=== PATIENT | female | born 1990 | race Caucasian/White ===

== ENCOUNTER → 2019-02-12 | Outpatient (CLI) | payer OTHER ==
[2019-02-12 14:05] LABS: BASO % 0.4 % (0.0-1.0); EOS # 0.2 10^3/uL (0.0-0.5); EOS % 2.9 % (0.0-3.0); HEMATOCRIT 42.1 % (36.0-47.0); HEMOGLOBIN 13.2 g/dl (12.0-15.5); LYMPH % 37.9 % (24.0-44.0); MEAN CORPUSCULAR HEMOGLOBIN 29.9 pg (27.0-33.0); MEAN CORPUSCULAR HGB CONC 31.4 g/dl (32.0-36.5); MEAN CORPUSCULAR VOLUME 95.5 fl (80.0-96.0); MONO # 0.4 10^3/uL (0.0-0.8); MONO % 8.4 % (0.0-5.0); NEUTROPHILS # 2.6 10^3/uL (1.5-8.5); NEUTROPHILS % 50.2 % (36.0-66.0); PLATELET COUNT, AUTOMATED 306 10^3/uL (150-450); RED BLOOD COUNT 4.41 10^6/uL (4.00-5.40); WHITE BLOOD COUNT 5.3 10^3/uL (4.0-10.0)
[2019-02-12 14:20] LABS: FREE T4 0.8 NG/DL (0.76-1.46); THYROID STIMULATING HORMONE 3.07 uIU/ML (0.358-3.740)
[2019-02-12 14:22] LABS: TOTAL 25(OH) VITAMIN D 21.2 NG/ML (30.0-100.0)
== END ==
LOC: M PLALAB 10:35
PROVIDERS: ATTEND Family Medicine
DX: F32.1 Major depressive disorder, single episode, moderate (principal)

== ENCOUNTER 2019-04-03 09:53 | Emergency (ER) | payer OTHER ==
[~2019-04-03] VITALS: Ht 162.6 cm; Wt 72.1 kg
[2019-04-03] MEDS ORDERED: [UNRECOGNIZED DRUG - OTHER] (10:01)
[2019-04-03] MEDS ORDERED: SERT-138 (10:02)
[2019-04-03] MEDS ORDERED: BENZ200C70 PO (11:35)
--- NOTE | 2019-04-03 12:15 | REP ---
Chest x-ray: Two views. History: cough and fever . Comparison study: No comparison . Findings: The lungs are well inflated and free of infiltrate. The pleural angles are sharp. The heart size is normal. Pulmonary vasculature is not increased. No significant bony abnormality is seen. Impression: Negative chest x-ray. Electronically Signed by Loco Howell MD 04/03/2019 12:06 P
[2019-04-03 12:23] VITALS: BP 122/78
== END 2019-04-03 12:31 | disposition home or self-care (01) ==
LOC: M ED 09:53
DX: J06.9 Acute upper respiratory infection, unspecified (principal); B34.9 Viral infection, unspecified; Z79.899 Other long term (current) drug therapy; Z88.1 Allergy status to other antibiotic agents; Z88.2 Allergy status to sulfonamides; Z88.5 Allergy status to narcotic agent; Z88.8 Allergy status to other drugs, medicaments and biological substances

== ENCOUNTER → 2020-01-08 | Outpatient (CLI) | payer OTHER ==
[~2020-01-08] MED LIST: BENZ200C70 PO; SERT-138; [UNRECOGNIZED DRUG - OTHER]
[2020-01-08 13:23] LABS: BASO % 0.2 % (0.0-1.0); EOS # 0.1 10^3/uL (0.0-0.5); EOS % 1.9 % (0.0-3.0); HEMATOCRIT 39.8 % (36.0-47.0); HEMOGLOBIN 12.9 g/dl (12.0-15.5); LYMPH # 2.2 10^3/uL (1.5-5.0); LYMPH % 41.7 % (24.0-44.0); MEAN CORPUSCULAR HEMOGLOBIN 29.5 pg (27.0-33.0); MEAN CORPUSCULAR HGB CONC 32.4 g/dl (32.0-36.5); MEAN CORPUSCULAR VOLUME 90.9 fl (80.0-96.0); MONO # 0.4 10^3/uL (0.0-0.8); MONO % 7.3 % (0.0-5.0); NEUTROPHILS # 2.5 10^3/uL (1.5-8.5); NEUTROPHILS % 48.7 % (36.0-66.0); PLATELET COUNT, AUTOMATED 297 10^3/uL (150-450); RED BLOOD COUNT 4.38 10^6/uL (4.00-5.40); WHITE BLOOD COUNT 5.2 10^3/uL (4.0-10.0)
[2020-01-08 13:55] LABS: ALBUMIN 4.3 GM/DL (3.2-5.2); ALT/SGPT 32 U/L (12-78); BILIRUBIN,TOTAL 0.4 MG/DL (0.2-1.0); BLOOD UREA NITROGEN 8 MG/DL (7-18); CALCIUM LEVEL 9.1 MG/DL (8.5-10.1); CARBON DIOXIDE LEVEL 25 MEQ/L (21-32); CHLORIDE LEVEL 107 MEQ/L (98-107); CREATININE FOR GFR 0.76 MG/DL (0.55-1.30); FREE T4 0.88 NG/DL (0.76-1.46); GLOMERULAR FILTRATION RATE > 60.0 (>60); GLUCOSE, FASTING 80 MG/DL (70-100); HEMOGLOBIN A1c 5.4 %; LUTEINIZING HORMONE 2.7 mIU/mL; POTASSIUM SERUM 3.8 MEQ/L (3.5-5.1); SODIUM LEVEL 139 MEQ/L (136-145); TOTAL PROTEIN 7.1 GM/DL (6.4-8.2)
[2020-01-08 13:56] LABS: FOLLICLE STIMULATING HORMONE 2.1 mIU/mL
[2020-01-09 10:58] LABS: CHLAMYDIA DNA AMPLIFICATION NEGATIVE (NEGATIVE); GC DNA AMPLIFICATION NEGATIVE (NEGATIVE)
== END ==
LOC: M PLALAB 11:22
PROVIDERS: ATTEND Family Medicine
DX: F32.1 Major depressive disorder, single episode, moderate (principal); N91.1 Secondary amenorrhea

== ENCOUNTER → 2020-05-16 | Outpatient (CLI) | payer OTHER ==
--- NOTE | 2020-05-16 18:50 | REP ---
INDICATION: [id number] OVARIAN CYST,RT SIDE. COMPARISON: Comparison pelvic sonography 22 January 2020.. TECHNIQUE: Transabdominal and transvaginal scanning were performed. FINDINGS: Uterine dimensions are normal at 10.2 x 5.3 x 7.2 cm. Endometrial echo is 1.0 cm thick and centrally placed. No free fluid is seen in the cul-de-sac. Visualized bladder carranza are smooth. No focal uterine lesion is seen. Question small quantity of endometrial fluid. Right ovary measures 5.0 x 3.7 x 2.8 cm. There is a complex cyst in the right ovary measuring 3.1 x 2.6 x 2.2 cm.. Left ovarian dimensions are 4.5 x 3.6 x 2.9 cm. There is a 2.5 x 1.9 x 2.2 cm heterogeneous area in the left ovary. This may be hemorrhagic follicle although a similar area was observed on previous sonography from January 22, 2020.. IMPRESSION: No uterine abnormality. Complex follicle cyst right ovary. Hypoechoic 2.5 cm area left ovary again seen unchanged.. <Electronically signed by Emil Howell > 05/16/20 [id number]
== END ==
LOC: M WHC 11:36
PROVIDERS: ATTEND Obstetrics & Gynecology
DX: N83.291 Other ovarian cyst, right side (principal); N83.8 Other noninflammatory disorders of ovary, fallopian tube and broad ligament